=== PATIENT | female | born 1965 | race Caucasian/White ===

== ENCOUNTER 2023-12-30 06:01 | Inpatient (IN) | payer OTHER, SELFPAY ==
[2023-12-29 12:29] LABS: INR 1.09; PT 14.2 Sec (11.4-14.6)
[2023-12-29 12:30] LABS: APTT 30.4 Sec (23.4-35.0)
[2023-12-29 12:36] LABS: % Basophils 0.8 % (0-2); % Eosinophils 2.4 % (0-6); % Immature Granulocytes 0.1 % (0-0.5); % Lymphocytes 20.4 % (20.5-51.1); % Monocytes 9.1 % (1.7-9.3); % Neutrophils 67.2 % (42.2-75.2); Absolute Basophils 0.1 10^3/uL (0-0.2); Absolute Eosinophils 0.2 10^3/uL (0-0.7); Absolute Lymphocytes 1.5 10^3/uL (1.2-3.4); Absolute Monocytes 0.7 10^3/uL (0.1-0.6); Absolute Neutrophils 4.9 10^3/uL (1.4-6.5); Hematocrit 35.9 % (37.0-47.0); Hemoglobin 12.6 g/dL (12.0-16.0); Mean Corp Hgb Conc. 35.1 g/dL (33.0-37.0); Mean Corpuscular Hgb 33.3 pg (27.0-31.0); Mean Platelet Volume 11.6 fL (7.4-10.4); Nucleated Red Blood Cells % 0 %; Platelet Count 292 10^3/uL (130-400); Red Blood Cell Count 3.78 10^6/uL (4.20-5.40); Red Cell Dist. Width 11.9 % (11.5-14.5); White Blood Cell Count 7.4 10^3/uL (4.8-10.8)
[2023-12-29 13:31] LABS: ALT (SGPT) 19 U/L (0-35); AST (SGOT) 38 U/L (14-36); Albumin 4.9 g/dl (3.5-5.0); Alkaline Phosphatase 68 U/L (38-126); Blood Urea Nitrogen 12 mg/dl (7-17); Calcium 10.1 mg/dl (8.4-10.2); Carbon Dioxide 25 mmol/L (22-30); Chloride 101 mmol/L (98-107); Glucose 81 mg/dl (70-99); Potassium 4.7 mmol/L (3.5-5.1); Sodium 139 mmol/L (135-145); Total Bilirubin 0.7 mg/dl (0.2-1.3); Total Protein 7.3 g/dl (6.3-8.2); eGFR > 60.00
[2023-12-29 13:56] LABS: Glycohemoglobin (HgbA1c) 5.3 % (4.0-5.6)
[2023-12-30] VITALS (21 sets, daily range): BP systolic 20–400; BP diastolic 57–75; BMI 20.7
[2023-12-30] MEDS: NEURONTIN 600 MG PO (06:20)
[2023-12-30] MEDS: TYLENOL 1000 MG PO (06:20)
[2023-12-30] MEDS: ENTEREG 12 MG PO (06:21)
[2023-12-30] MEDS: NORMOSOL-R/PLASMALYTE-A 1000 IV (06:44)
--- NOTE | 2023-12-30 08:50 | W.SUR.POST ---
Surgical Immediate Post Op
Note
Pre Op Diagnosis:
1. Rectocele
2. Ovarian cyst
Post Op Diagnosis:
1. Rectocele
2. Bilateral peritbual cysts
Procedure Performed:
1. Posterior colporrhaphy with perineoplasty
2. Robotic bilateral salpingectomy and cystectomy
Primary Surgeon: Aayush Rosenberg MD
Secondary Surgeons: None
Anesthesia: General with ET tube
Estimated Blood Loss: 10cc
Specimens/Cultures: None
Doppler/Duplex/Angio (Y/N):N
Complications: None
Operative Findings: 2 cm left tayo-tubal cyst and 1 cm right tayo-tubal cyst
--- NOTE | 2023-12-30 11:25 | W.IMMPOSTOP ---
Surgical Immed Post Op Note
-
Primary Surgeon: Dominique Medina MD
Assisting Surgeon: JEFFRY Lewis
Pre-op Diagnosis: 1) rectal prolapse 2) constipation
Post-op Diagnosis: same
Procedure Performed: 1) robotic sigmoidectomy with rectopexy (ykman-Elizalde procedure) 2) flexible sigmoidoscopy
Anesthesia Type: general plus local
Specimen / Cultures: sigmoid colon
Estimated Blood Loss: 50 cc
Complications: no immediate
Operative Findings: 1) redundant sigmoid colon with deep pouch of James 2) bilateral ovarian cysts
Ureteral stents and escobar by Dr. Shelton. R stent removed at end of case.
Will send to med surg.
[2023-12-30 11:42] LABS: Glucose - Point of Care 139 mg/dl (70-99)
[2023-12-30] MEDS: D5LR 1000 IV ×2 (12:20→21:55)
[2023-12-30 12:31] LABS: % Basophils 0.3 % (0-2); % Immature Granulocytes 0.4 % (0-0.5); % Lymphocytes 2.9 % (20.5-51.1); % Neutrophils 95.4 % (42.2-75.2); Absolute Immature Granulocytes 0.1 10^3/uL (0-0.05); Absolute Lymphocytes 0.3 10^3/uL (1.2-3.4); Absolute Monocytes 0.1 10^3/uL (0.1-0.6); Absolute Neutrophils 11.2 10^3/uL (1.4-6.5); Hematocrit 31.8 % (37.0-47.0); Hemoglobin 11.1 g/dL (12.0-16.0); Mean Corp Hgb Conc. 34.9 g/dL (33.0-37.0); Mean Corpuscular Hgb 33.1 pg (27.0-31.0); Mean Corpuscular Volume 94.9 fL (81.0-99.0); Mean Platelet Volume 10.6 fL (7.4-10.4); Nucleated Red Blood Cells % 0 %; Platelet Count 245 10^3/uL (130-400); Red Blood Cell Count 3.35 10^6/uL (4.20-5.40); Red Cell Dist. Width 11.9 % (11.5-14.5); White Blood Cell Count 11.7 10^3/uL (4.8-10.8)
[2023-12-30 12:52] LABS: Blood Urea Nitrogen 8 mg/dl (7-17); Calcium 8.3 mg/dl (8.4-10.2); Carbon Dioxide 25 mmol/L (22-30); Chloride 105 mmol/L (98-107); Estimated Creatinine Clearance 96 ml/min; Glucose 142 mg/dl (70-99); Magnesium 2.2 mg/dl (1.6-2.3); Potassium 3.9 mmol/L (3.5-5.1); Sodium 139 mmol/L (135-145); eGFR > 60.00
[2023-12-30] MEDS: TYLENOL 650 MG PO ×3 (14:19→23:03)
[2023-12-30] MEDS: TORADOL 15 MG IV ×2 (14:20→23:04)
[2023-12-30] MEDS: ZOFRAN 4 MG IV (14:30)
[2023-12-30] MEDS: ERYTHROMYCIN 0.5% OPHTHALMIC OINTMENT 1 APPLIC OPHTH ×2 (14:34→21:45)
[2023-12-30] MEDS: TYLENOL PO (16:00)
--- NOTE | 2023-12-30 16:23 | PTCARENOTE ---
Received patient from PACU around 1600 via bed in stable condition. Pain controlled. Urinary catheter draining ho-chunk, blood tinged urine. Scant amount of vaginal bleeding. Victoriano to right abdomen draining sanguinous drainage. Patient oriented to room.
Call matias in reach.
[2023-12-30] MEDS: TORADOL IV (20:27)
[2023-12-30] MEDS: DILAUDID 0.25 MG IV (22:00)
[2023-12-31] MEDS: TYLENOL 650 MG PO ×5 (04:10→19:20)
[2023-12-31] MEDS: TORADOL 15 MG IV ×4 (06:07→22:51)
[2023-12-31] MEDS: DILAUDID 0.25 MG IV ×2 (06:44→10:59)
[2023-12-31 07:20] VITALS: BP 108/61
[2023-12-31 07:24] LABS: % Basophils 0.3 % (0-2); % Eosinophils 0.2 % (0-6); % Immature Granulocytes 0.6 % (0-0.5); % Lymphocytes 12.5 % (20.5-51.1); % Monocytes 9.9 % (1.7-9.3); % Neutrophils 76.5 % (42.2-75.2); Absolute Immature Granulocytes 0.1 10^3/uL (0-0.05); Absolute Lymphocytes 1.5 10^3/uL (1.2-3.4); Absolute Monocytes 1.2 10^3/uL (0.1-0.6); Absolute Neutrophils 8.9 10^3/uL (1.4-6.5); Hematocrit 29.7 % (37.0-47.0); Hemoglobin 10.4 g/dL (12.0-16.0); Mean Corpuscular Hgb 33.2 pg (27.0-31.0); Mean Corpuscular Volume 94.9 fL (81.0-99.0); Mean Platelet Volume 11.3 fL (7.4-10.4); Nucleated Red Blood Cells % 0 %; Platelet Count 240 10^3/uL (130-400); Red Blood Cell Count 3.13 10^6/uL (4.20-5.40); Red Cell Dist. Width 12.1 % (11.5-14.5); White Blood Cell Count 11.7 10^3/uL (4.8-10.8)
[2023-12-31] MEDS: ERYTHROMYCIN 0.5% OPHTHALMIC OINTMENT 1 APPLIC OPHTH ×4 (07:26→20:02)
[2023-12-31] MEDS: PROTONIX 40 MG PO (07:27)
[2023-12-31] MEDS: LAMICTAL 100 MG PO (07:27)
[2023-12-31] MEDS: D5LR 1000 IV ×2 (07:30→17:15)
[2023-12-31 07:43] LABS: Blood Urea Nitrogen 9 mg/dl (7-17); Calcium 8.8 mg/dl (8.4-10.2); Carbon Dioxide 24 mmol/L (22-30); Chloride 106 mmol/L (98-107); Estimated Creatinine Clearance 82 ml/min; Glucose 99 mg/dl (70-99); Potassium 4.4 mmol/L (3.5-5.1); Sodium 138 mmol/L (135-145); eGFR > 60.00
--- NOTE | 2023-12-31 08:16 | W.PN.GYN ---
Today's Communication / Plan
-
escobar removal, monitor Is+Os, diet advancement per general surgery team
Physician Note
-
S:
Patient reports incisional pain controlled. She is tolerating sips of water. Denies passing flatus. Patient ambulated yesterday and today without difficulty. Reports some vaginal spotting; requesting pad. Denies weakness, sob, chest pain, nausea.
O:
GA: Well appearing female in NAD
HEENT: normocephalic
Abd:soft, nondistended, right abdomen with alexandr drain draining ss output, abdominal incisions covered with dermabond
/MUCK OPERATOR: escobar catheter draining blood tinged urine, second ureteral stent was removed at bedside, posterior incisions intact, minimal bleeding noted
Neuro: no focal deficits
Lab Results
12/31/23 06:36
12/31/23 06:36
Intake and Output
12/29/23 12/30/23 12/31/23 01/01/24
06:59 06:59 06:59 06:59
Intake Total 900 / 900
Output Total 1410 / 1410
Balance -510 / -510 -25 / -25
Intake:
IV fluids (Total) 900 / 900
D5LR 200 / 200
Normosol 700 / 700
Output:
Emesis
Drain Output (Total) 480 / 480
Abdomen Cameron-Rebollar 480 / 480
Urine, Escobar 900 / 900
Urine, Voided
Other:
Number of immeasurable emeses? 1
Vital Signs
Temp Pulse Resp BP Pulse Ox
97.5 F 56 16 99/55 97
12/31/23 11:35 12/31/23 11:35 12/31/23 11:35 12/31/23 11:35 12/31/23 11:35
A/P:
Posterior colporrhaphy and perineoplasty, b/l salpingectomy and cystectomy , robotic sigmoidectomy with rectopexy (Frykman-Elizalde procedure), flexible sigmoidoscopy. Healing well. H/H stable. Creatinine stable compared to preop.
- Remove escobar catheter
- Continue strict Is and Os
- Ambulation encouraged
- Continue wearing liner/pads; vaginal bleeding likely to become director of development and become only spotting by POD3
- May continue local ice packs prn; tylenol/ibuprofen alternating prn
- Rest of care per Dr. Medina's team
- Followup with Dr. Rosenberg's office in two week (restrictions include no heavy lifting over 10lbs, no swimming/tub bathing, no vaginal insertion x 6 weeks)
- Patient should refer to postop care instructions packet given to patient at preop appointment
--- NOTE | 2023-12-31 10:01 | W.PN.CRS1 ---
Today's Communication / Plan
-
dc escobar
clears
oob
lovenox
Assessment/Plan
-
POD#1 1) robotic sigmoidectomy with rectopexy (Frykman-Elizalde procedure) 2) flexible sigmoidoscopy
-WBC 11.7 as expected postop. Vitals normal.
-Out of bed as tolerated
-Decrease IV fluids to 60 mL/h
-OR stent #2 removed at bedside
-Start Lovenox today for DVT prophylaxis. Teds and SCDs in place.
-Clear liquid diet.
-DC Escobar
-Continue OR drain until prior to discharge.
-OR pathology pending
Subjective Data
Procedure
1) robotic sigmoidectomy with rectopexy (Frykman-Elizalde procedure) 2) flexible sigmoidoscopy
Subjective Data
Date of Service: December 31, 2023
Patient states she has no nausea or vomiting. Her abdominal pain is controlled. She is not having bowel movements or flatus just yet. She is overall feeling well. Her main complaint is right shoulder pain.
Objective Data
-
Vital Signs
Temp Pulse Resp BP Pulse Ox
99.1 F 53 16 108/61 98
12/31/23 07:20 12/31/23 07:20 12/31/23 07:20 12/31/23 07:20 12/31/23 08:00
Intake & Output
12/30/23 12/31/23 01/01/24
06:59 06:59 06:59
Intake Total 900 / 900
Output Total 1410 / 1410
Balance -510 / -510
Intake:
IV fluids (Total) 900 / 900
D5LR 200 / 200
Normosol 700 / 700
Output:
Emesis
Drain Output (Total) 480 / 480
Abdomen Cameron-Rebollar 480 / 480
Urine, Escobar 900 / 900
Other:
Number of immeasurable emeses? 1
Lab Results
12/31/23 06:36
12/31/23 06:36
Physical Exam
-
General: No Acute Distress and AOx3
Abdomen: Soft, Non Distended, Non Tender and Other (KUSH drain with serosanguineous output)
Skin: Warm
Incision: Clear, Dry, Intact
[2023-12-31 11:35] VITALS: BP 99/55
--- NOTE | 2023-12-31 15:22 | CM ---
Met with patient at the bedside; initial assessment completed
Pharmacy verified: [facility] @ [address], [place], [place]
Patient and significant other, Jermaine, live in a multilevel home; 1 step to enter; 12 steps between floors; powder room 1st floor; 2nd floor bath has tub w/shower
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
NO SNF or Home Health utilization history
Significant Other will transport home
No DME
Offered Home Health VN if she is discharged with abdominal drain; patient declined
Plan: Discharge to home when medically stable; no services needed
[2023-12-31] MEDS: DILAUDID 0.5 MG IV ×2 (15:38→19:21)
[2023-12-31 15:46] VITALS: BP 94/65
[2023-12-31] MEDS: LOVENOX 40 MG SC (17:13)
[2023-12-31] MEDS: COMPAZINE 10 MG IV (20:03)
[2023-12-31 23:31] VITALS: BP 98/59
[2024-01-01] MEDS: TYLENOL PO (00:33)
[2024-01-01] MEDS: DILAUDID 0.25 MG IV ×2 (02:59→08:25)
[2024-01-01] MEDS: TYLENOL 650 MG PO ×6 (03:00→23:30)
[2024-01-01] MEDS: TORADOL 15 MG IV ×4 (05:59→23:24)
[2024-01-01 06:00] VITALS: BMI 22.1
[2024-01-01 07:01] LABS: % Basophils 0.5 % (0-2); % Eosinophils 2.2 % (0-6); % Immature Granulocytes 0.3 % (0-0.5); % Lymphocytes 27.7 % (20.5-51.1); % Monocytes 8.7 % (1.7-9.3); % Neutrophils 60.6 % (42.2-75.2); Absolute Eosinophils 0.1 10^3/uL (0-0.7); Absolute Lymphocytes 1.8 10^3/uL (1.2-3.4); Absolute Monocytes 0.6 10^3/uL (0.1-0.6); Absolute Neutrophils 3.9 10^3/uL (1.4-6.5); Hematocrit 28.8 % (37.0-47.0); Hemoglobin 9.8 g/dL (12.0-16.0); Mean Corpuscular Hgb 31.5 pg (27.0-31.0); Mean Corpuscular Volume 92.6 fL (81.0-99.0); Mean Platelet Volume 10.8 fL (7.4-10.4); Nucleated Red Blood Cells % 0 %; Platelet Count 223 10^3/uL (130-400); Red Blood Cell Count 3.11 10^6/uL (4.20-5.40); Red Cell Dist. Width 12.2 % (11.5-14.5); White Blood Cell Count 6.4 10^3/uL (4.8-10.8)
[2024-01-01 07:10] VITALS: BP 120/68
[2024-01-01 07:25] LABS: Blood Urea Nitrogen 8 mg/dl (7-17); Calcium 8.6 mg/dl (8.4-10.2); Carbon Dioxide 26 mmol/L (22-30); Chloride 104 mmol/L (98-107); Estimated Creatinine Clearance 98 ml/min; Glucose 96 mg/dl (70-99); Potassium 4.5 mmol/L (3.5-5.1); Sodium 136 mmol/L (135-145); eGFR > 60.00
[2024-01-01] MEDS: PROTONIX 40 MG PO (08:20)
[2024-01-01] MEDS: LAMICTAL 100 MG PO (08:20)
[2024-01-01] MEDS: ERYTHROMYCIN 0.5% OPHTHALMIC OINTMENT 1 APPLIC OPHTH ×4 (08:21→20:08)
[2024-01-01] MEDS: D5LR 1000 IV (08:32)
--- NOTE | 2024-01-01 09:06 | W.PN.GS2 ---
Addendum entered and electronically signed by Jake Gonzales MD 01/01/24 14:53:
I saw and examined the patient.
The Cable Tool Operator's note was reviewed and I agree with the note.
Comment: Improving. Passing flatus, coco cld. Exam aprrop, mildly softly distended, drain serous with about 200cc yesterday and about 300cc so far today. incisions cdi. PLan to adv to FLD, continue drain to bulb suction
Original Note:
Today's Communication / Plan
-
FLD
OOB/Ambulate
Assessment / Plan
-
58 yo female with h/o rectal prolapse now POD #2 robotic sigmoidectomy with rectopexy by CRS with posterior colporrhaphy and perineoplasty with robotic bilateral salpingectomy and cystectomy by uro/labor specialist
AFVSS
Tolerating clears with +flatus but some distention remains
voiding well
Labs stable
--Advance to FLD
--C/W KUSH drain, outputs increased: will follow closely. Likely will be able to remove post operatively
--Multimodal analgesics, will add PO tramadol
--OOB/Ambulate
--D/C IVF
--SCD's and lovenox for VTE ppx
Subjective Data
-
Date of Service: January 01, 2024
Patient seen and examined at bedside. Denies n/v. Tolerating clears. Passing flatus but no stools as of yet. Voiding well.
Objective Data
-
Intake and Output
12/31/23 01/01/24 01/02/24
06:59 06:59 06:59
Intake Total 900 / 900 2160 / 2160
Output Total 1410 / 1410 560 / 560
Balance -510 / -510 1600 / 1600
Intake:
Oral fluids 1440 / 1440
IV fluids (Total) 900 / 900 720 / 720
D5LR 200 / 200
Normosol 700 / 700
Output:
Emesis 30 / 30
Drain Output (Total) 480 / 480 310 / 310
Abdomen Cameron-Rebollar 480 / 480 310 / 310
Urine, Walker 900 / 900
Urine, Voided 250 / 250
Other:
Number of approximated MODERATE 2
amounts of urine
Number of immeasurable emeses? 1
Vital Signs
Temp Pulse Resp BP Pulse Ox
98.0 F 53 16 120/68 98
01/01/24 07:10 01/01/24 07:10 01/01/24 07:10 01/01/24 07:10 01/01/24 07:10
Lab Results
01/01/24 06:47
01/01/24 06:47
Calcium 8.6 mg/dl (8.4-10.2) 01/01/24 06:47
Magnesium 2.0 mg/dl (1.6-2.3) 12/31/23 06:36
Total Bilirubin 0.7 mg/dl (0.2-1.3) 12/29/23 09:39
AST 38 U/L (14-36) H 12/29/23 09:39
ALT 19 U/L (0-35) 12/29/23 09:39
Alkaline Phosphatase 68 U/L (38-126) 12/29/23 09:39
Total Protein 7.3 g/dl (6.3-8.2) 12/29/23 09:39
Albumin 4.9 g/dl (3.5-5.0) 12/29/23 09:39
Physical Exam
-
NAD
ABD soft, mildly distended/tympany, mild incisional tenderness
Incisions clear, dry and well approximated with intact glue, KUSH with mostly serous outputs
[2024-01-01] MEDS: ULTRAM 50 MG PO (11:26)
[2024-01-01 15:15] VITALS: BP 121/78
[2024-01-01] MEDS: LOVENOX 40 MG SC (17:23)
[2024-01-01 23:35] VITALS: BP 109/81
[2024-01-02] MEDS: TYLENOL PO (03:54)
[2024-01-02 06:00] VITALS: BMI 22.3
[2024-01-02] MEDS: TORADOL 15 MG IV (06:04)
[2024-01-02 08:05] VITALS: BP 147/83
--- NOTE | 2024-01-02 08:55 | W.PN.GS2 ---
Today's Communication / Plan
-
Advance diet/dispo planning
Assessment / Plan
-
58 yo female with h/o rectal prolapse now POD #3 robotic sigmoidectomy with rectopexy by CRS with posterior colporrhaphy and perineoplasty with robotic bilateral salpingectomy and cystectomy by uro/solution make up operator
AFVSS
voiding well
Labs stable
--Advance to LRD
--Will remove KUSH prior to d/c pending outputs
--Multimodal analgesics, will add PO tramadol
--OOB/Ambulate
--D/C IVF
--SCD's and lovenox for VTE ppx
Tentative d/c later today once tolerating diet
Subjective Data
-
Date of Service: January 02, 2024
Patient seen and examined at bedside. Denies n/v. Tolerating FLD. Pain improved. Passing flatus and BMs
Objective Data
-
Intake and Output
01/01/24 01/02/24 01/03/24
06:59 06:59 06:59
Intake Total 2160 / 2160 1340 / 1340
Output Total 560 / 560 285 / 285
Balance 1600 / 1600 1055 / 1055
Intake:
Oral fluids 1440 / 1440 1340 / 1340
IV fluids (Total) 720 / 720
Output:
Drain Output (Total) 310 / 310 285 / 285
Abdomen Cameron-Rebollar 310 / 310 285 / 285
Urine, Voided 250 / 250
Other:
Number of approximated MODERATE 2 2
amounts of urine
Number of approximated LARGE 1
amounts of urine
Vital Signs
Temp Pulse Resp BP Pulse Ox
97.9 F 54 16 147/83 97
01/02/24 08:05 01/02/24 08:05 01/02/24 08:05 01/02/24 08:05 01/02/24 08:05
Lab Results
01/01/24 06:47
01/01/24 06:47
Calcium 8.6 mg/dl (8.4-10.2) 01/01/24 06:47
Magnesium 2.0 mg/dl (1.6-2.3) 12/31/23 06:36
Total Bilirubin 0.7 mg/dl (0.2-1.3) 12/29/23 09:39
AST 38 U/L (14-36) H 12/29/23 09:39
ALT 19 U/L (0-35) 12/29/23 09:39
Alkaline Phosphatase 68 U/L (38-126) 12/29/23 09:39
Total Protein 7.3 g/dl (6.3-8.2) 12/29/23 09:39
Albumin 4.9 g/dl (3.5-5.0) 12/29/23 09:39
Physical Exam
-
NAD
ABD soft, ND, NT
Incisions clear, dry and well approximated with intact glue, KUSH with mostly serous outputs
[2024-01-02] MEDS: ERYTHROMYCIN 0.5% OPHTHALMIC OINTMENT 1 APPLIC OPHTH (08:57)
[2024-01-02] MEDS: TYLENOL 650 MG PO ×2 (08:57→13:15)
[2024-01-02] MEDS: PROTONIX 40 MG PO (08:57)
[2024-01-02] MEDS: LAMICTAL 100 MG PO (08:58)
--- NOTE | 2024-01-02 12:47 | W.DCSUMMARY ---
Discharge Summary
Discharge Data
Date of Admission: 12/30/23
Date of Discharge: 01/02/24
-
Pending Results: No
Hospital Course
Ms Dolan presented for scheduled surgery for rectal prolapse with urology and colorectal surgery. She underwent a robotic sigmoidectomy with rectopexy by colorectal surgery with posterior colporrhaphy and perineoplasty with robotic bilateral
salpingectomy and cystectomy by urology. She tolerated the procedure well without complication. Walker was removed post operatively and the patient was able to void without difficulty. Diet was able to be advanced and well tolerated prior to
discharge with evidence of good bowel recovery prior to discharge. Pain was well managed. She was discharged to home with her significant other with outpatient follow up scheduled in the coming weeks with both surgeons.
Discharge Plan
-
Patient Disposition: Home (Routine Discharge)
Discharge Diagnosis/Procedures: 1) robotic sigmoidectomy with rectopexy (Frykman-Elizalde procedure) 2) flexible sigmoidoscopy
Condition: Good
Diet: Low Residue
Activity: No strenuous activity
Additional Activity: No lifting over 10lbs (gallon of milk)
Driving Restrictions: Not until seen by your Dr
Bathing Restrictions: OK to Shower
Wound Care: Allow glue to naturally fall off. Do not pick at incisions. Cover the site where your drain was with dry gauze or a bandage. Ok to remove for showers. Change dressing daily until drainage no longer then leave dressing off.
Instructions: Low Fiber Diet
Referrals:
Phoenix Medina MD [Active] - 01/14/24
Love Gandhi CRNP [Family Provider] -
Aayush Rosenberg MD [Active] - 01/28/24
Additional Discharge Medication Instructions: Tylenol or Ibuprofen as needed for pain. Maximum dose of Tylenol is 4,000mg/24 hours. Maximum dose of Ibuprofen is 3,200mg/24 hours.
Prescriptions:
New
acetaminophen [acetaminophen] 325 mg tablet
650 mg PO Q4HPRN PRN (Reason: mild pain) Qty: 1 0RF
tramadol 50 mg tablet
25 - 50 mg PO Q6HPRN PRN (Reason: severe pain/breakthrough pain) Qty: 15 0RF
ibuprofen 200 mg tablet
400 - 600 mg PO Q6HPRN PRN (Reason: moderate pain) Qty: 1 0RF
Continued
lamotrigine 100 MG tablet
100 mg PO DAILY
multivitamin Tablet
1 tab PO DAILY
Lizette
2 cap PO DAILY
Discontinued
Bowel Prep Kit
1 dose PO DIRECTED
Discharge Orders:
Discharge Patient (As Directed); Ordered 01/02/24
Ordered By: Cheyanne Paulson
Discharge Date and Time
Print Language: [place]
[2024-01-02] MEDS: TORADOL IV (13:15)
[2024-01-02] MEDS: ERYTHROMYCIN 0.5% OPHTHALMIC OINTMENT OPHTH (13:33)
--- NOTE | 2024-01-02 13:54 | CM ---
Reviewed the chart notes. Patient discharged to home with significant other providing transportation.
== END 2024-01-02 13:42 | disposition home or self-care (01) | DRG 330 ==
LOC: 2 SOUTH 06:01
PROVIDERS: Obstetrics & Gynecology; Physician Assistant; Specialist; ADMITTING PHYSICIAN Surgery; FAMILY PHYSICIAN Nurse Practitioner Family
PROC: 0DTNFZZ Resection of Sigmoid Colon, Via Natural or Artificial Opening With Percutaneous Endoscopic Assistance (ICD-10-PCS; 2023-12-30)
PROC: 0JQC0ZZ Repair Pelvic Region Subcutaneous Tissue and Fascia, Open Approach (ICD-10-PCS; 2023-12-30)
PROC: 8E0W0CZ Robotic Assisted Procedure of Trunk Region, Open Approach (ICD-10-PCS; 2023-12-30)
PROC: 0UB74ZZ Excision of Bilateral Fallopian Tubes, Percutaneous Endoscopic Approach (ICD-10-PCS; 2023-12-30)
PROC: 0T788DZ Dilation of Bilateral Ureters with Intraluminal Device, Via Natural or Artificial Opening Endoscopic (ICD-10-PCS; 2023-12-30)
PROC: 0UB24ZZ Excision of Bilateral Ovaries, Percutaneous Endoscopic Approach (ICD-10-PCS; 2023-12-30)
PROC: 0DSP4ZZ Reposition Rectum, Percutaneous Endoscopic Approach (ICD-10-PCS; 2023-12-30)
DX: K62.3 Rectal prolapse (principal); Q43.8 Other specified congenital malformations of intestine; K59.00 Constipation, unspecified; N83.292 Other ovarian cyst, left side; N83.291 Other ovarian cyst, right side; N83.8 Other noninflammatory disorders of ovary, fallopian tube and broad ligament
CPT/HCPCS: 88305; 88307; 36415; 80048; 80053; 82962; 83036; 83735; 85025; 85610; 85730; 86850; 86900; 86901; J1335